=== PATIENT | female | born 1950 | race Caucasian/White ===

== ENCOUNTER 2018-07-07 02:10 | Emergency (ER) | payer MEDICARE, MEDICAID ==
[2018-07-07] MEDS ORDERED: Lidocaine 1% 10 ML MDV INJECT ONE (02:20)
[2018-07-07 02:26] VITALS: BP 112/51
--- NOTE | 2018-07-07 02:31 | EDM.PDOC ---
ED HPI GENERAL MEDICAL PROBLEM - General Chief Complaint: Laceration Stated Complaint: [facility] Time Seen by Provider: 07/07/18 02:12 Source of Information: Reports: Patient, Family History Limitations: Reports: Other (mentally handicapped. ) - History of Present Illness INITIAL COMMENTS - FREE TEXT/NARRATIVE: 67-year-old female who resides at [facility] had a fall after getting up to the bathroom tonight. Apparently she has bad arthritis in her knees and occasionally her left knee in particular will give out on her at times. This appears to be what happened tonight causing her to fall backwards striking her occipital scalp on the windowsill. This resulted in a 1 cm laceration left occipital scalp. Providers were with her when she fell and recognize no loss of consciousness. The patient is mentally handicapped and nonverbal in the ED. No other injuries are apparent. Onset: Today Onset Date: 07/07/18 Onset Time: 01:45 Duration: Minutes: Location: Reports: Head (Contusion with small laceration left occipital scalp.) Quality: Reports: Other Severity: Mild (1 cm laceration left occipital scalp) Improves with: Reports: None Worsens with: Reports: None Context: Reports: Trauma. 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: Reports: Other (see below) (None.) - Related Data Allergies Allergy/AdvReac Type Severity Reaction Status Date / Time carbamazepine Allergy Rash Verified 07/07/18 02:26 Penicillins Allergy Cannot Verified 07/07/18 02:26 Remember sulfamethoxazole Allergy Cannot Verified 07/07/18 02:26 [From Bactrim] Remember trimethoprim [From Bactrim] Allergy Cannot Verified 07/07/18 02:26 Remember Home Meds: Home Meds F-Qhfm-Ouof-Lido Gel 0 applic TOP TID 11/27/14 [History] Calcium Carbonate/Vitamin D3 [Oyster Shell 500 mg + Vit D] 500 mg PO BID [History] Celecoxib [CeleBREX] 1 PO DAILY 11/27/14 [History] ClonazePAM [KlonoPIN] 1 tab PO TID 11/27/14 [History] Docusate Sodium [Doc-Q-Lace] 1 cap PO BID 11/27/14 [History] Escitalopram [Lexapro] 10 tab PO BID 11/27/14 [History] LORazepam [Ativan] 0.5 mg PO QID PRN 11/27/14 [History] Lactulose [Generlac] 30 ml PO BEDTIME 11/27/14 [History] Lisinopril 20 mg PO DAILY 11/27/14 [History] Metoprolol Succinate [Toprol XL] 1 tab PO BID 11/27/14 [History] Multivit-Min/FA/Lycopene/Lut [Certavite Sr-Antioxidant Tab] 1 tab PO DAILY 11/27 [History] Nystatin [Nystop] 0 gram TOP TID PRN 11/27/14 [History] Nystatin/Triamcinolone Crm [Mycolog Crm] 0 applic TOP PRN 11/27/14 [History] [place]-3/DHA/Epa/Fish Oil [Fish Oil 1,000 mg Softgel] 1,000 mg PO TID 11/27/14 [ History] Omeprazole [Prilosec] 20 mg PO BID 11/27/14 [History] [id number]/Sod Sul/NaCl/Asb/C/KCl [Moviprep Powder Packet] 17 mg PO DAILY 11/27/14 [History] Propylene Glycol/PEG 400/Pf [Systane Ultra 0.4-0.3% Eye Drp] 1 drop EYEBOTH DAILY 11/27/14 [History] Simvastatin [Zocor] 20 mg PO BEDTIME 11/27/14 [History] Tylenol/Acetaminophen 325 mg PO Q4HR PRN 11/27/14 [History] tiZANidine [Zanaflex] 2 mg PO BID 11/27/14 [History] Past Medical History Other HEENT History: No teeth and Pt does not wear dentures Other Musculoskeletal History: severe pronation of feet, right foot with collapsed arch Other Neuro History: severe mental retardation 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 Social & Family History - Living Situation & Occupation Living situation: Reports: Single (Lives at [facility]) Occupation: Disabled ED ROS GENERAL - Review of Systems Review Of Systems: Unable To Obtain ED EXAM, SKIN/RASH Exam: See Below Exam Limited By: Physical Impairment (Patient is nonverbal and the mentally handicapped.) General Appearance: Alert, WD/WN, No Apparent Distress Eye Exam: Bilateral Eye: Normal Inspection Throat/Mouth: Normal Inspection, Normal Lips, Normal Oropharynx Head: Other (Patient has minimal hematoma left occipital scalp with a 1 cm laceration which is fairly superficial but actively bleeding in this area.) Neck: Normal Inspection, Supple, Non-Tender, Full Range of Motion. No: Lymphadenopathy (L), Lymphadenopathy (R) Respiratory/Chest: No Respiratory Distress, Lungs Clear, Normal Breath Sounds, No Accessory Muscle Use Cardiovascular: Normal Peripheral Pulses, Regular Rate, Rhythm, No Edema, No Murmur, No Rub GI/Abdominal: Normal Bowel Sounds, Soft, Non-Tender, No Organomegaly Back Exam: Normal Inspection, Full Range of Motion. No: CVA Tenderness (L), CVA Tenderness (R) Extremities: Other (Evidence of posterior arthritic changes both knees and both hips.) Psychiatric: Flat Affect Skin: Warm, Dry, Normal Color, Other (Laceration left occipital scalp.) ED SKIN PROCEDURES - Laceration/Wound Repair Left Upper Occipital Head Lac/Wound length In cm: 1.0 Appearance: Subcutaneous, Clean Distal NVT: Neuro & Vascular Intact Anesthetic Type: Local Local Anesthesia - Lidocaine (Xylocaine): 1% Plain Local Anesthetic Volume: 1cc Skin Prep: Saline Closed with: Sutures Suture Size: 4-0 # of Sutures: 2 Suture Type: Prolene, Nylon, Interrupted, Simple Course - Vital Signs Last Recorded V/S: Last Vital Signs Temp 35.9 C 07/07/18 02:19 Pulse 70 07/07/18 02:19 Resp 20 07/07/18 02:19 BP 112/51 L 07/07/18 02:19 Pulse Ox 93 L 07/07/18 02:19 - Orders/Labs/Meds Meds: Medications Discontinued Medications Generic Name Dose Route Start Last Admin Trade Name Thaq PRN Reason Stop Dose Admin Lidocaine HCl 10 ml 07/07/18 02:20 07/07/18 02:26 Xylocaine 1% INJECT 07/07/18 02:21 10 ml ONETIME ONE Administration - Radiology Interpretation Free Text/Narrative:: 67-year-old female who is mentally handicapped presents to the ED after a fall at home this morning. She got up to use the bathroom and apparently on the way back to her bedroom her left knee gave out on her causing her to fall. She fell backward striking the left occipital aspect of her scalp on the windowsill. This resulted in a very minimal hematoma in this area but a 1 cm laceration that continued to bleed. She was thus brought to the ED for evaluation and suture repair. - Re-Assessments/Exams Free Text/Narrative Re-Assessment/Exam: 07/07/18 02:38 laceration repaired under local anesthetic 2 sutures using 4-0 Prolene. Sutures need to be removed in 10 days' time Departure - Departure Time of Disposition: 02:29 Disposition: Home, Self-Care 01 Condition: Fair Clinical Impression: Minor closed head injury Occipital scalp laceration Qualifiers: Encounter type: initial encounter Qualified Code(s): S01.01XA - Laceration without foreign body of scalp, initial encounter - Discharge Information *PRESCRIPTION DRUG MONITORING PROGRAM REVIEWED*: Not Applicable *COPY OF PRESCRIPTION DRUG MONITORING REPORT IN PATIENT KESAHV: Not Applicable Instructions: Head Injury, Adult, [id number], Stitches, [place], or Adhesive Wound Closure, [id number] Forms: ED Department Discharge Additional Instructions: Evaluation the emergency room tonight in regards to a fall at home. It appears that left knee gave out causing her to fall and she struck the left occipital aspect of her scalp on the edge of the windowsill. This resulted in a very minor contusion to the scalp but with a 1 cm laceration. Wound was cleansed and then sutured under local anesthetic 2 sutures. Treatment at home is to daily cleanse the wound with soap and water. Showering is okay. Then apply topical antibiotic such as bacitracin or Polysporin to the wound once daily. Sutures should be removed in about 10 days time. Please make a follow-up appointment with your primary care physician to have the stitches removed. Return to the ED if vomiting more than twice occurs.
== END 2018-07-07 02:46 | disposition home or self-care (01) ==
LOC: JD.ED 02:10
DX: S01.01XA Laceration without foreign body of scalp, initial encounter (principal); Z79.899 Other long term (current) drug therapy; Z88.0 Allergy status to penicillin; Z88.2 Allergy status to sulfonamides; Z88.1 Allergy status to other antibiotic agents; W19.XXXA Unspecified fall, initial encounter
CPT/HCPCS: 12001; 99283; J2001; 99282

== ENCOUNTER 2018-11-08 09:51 | Day surgery (SDC) | payer MEDICARE, MEDICAID ==
[~2018-11-08 09:51] MED LIST: Cefuroxime 10 MG/ML SYRINGE EYERT SCH; Lidocaine 1% PF 2 ML SDV INJECT SCH; Pilocarpine 4% Ophth Soln 15 ML Bot EYERT SCH; Polymyxin B/Trimethoprim 10 ML Bottle EYERT SCH
[2018-11-08] MEDS: Ofloxacin 0.3% Ophth Soln 5 ML Bottle EYERT SCH ×2 (10:35→11:15)
[2018-11-08] MEDS: Brimonidine 0.2% Ophth Soln 5 ML Bottle EYERT SCH ×3 (10:40→13:14)
[2018-11-08] MEDS: Phenylephrine 2.5% Ophth Soln 2 ML Bot EYERT SCH ×5 (10:45→12:55)
--- NOTE | 2018-11-08 10:48 | PCM.PREANE ---
Preanesthetic Assessment - Procedure Proposed Procedure: right cataract - Anesthesia/Transfusion/Family Hx Anesthesia History: Prior Anesthesia Without Reaction - Review of Systems General: No Symptoms Pulmonary: No Symptoms Cardiovascular: No Symptoms Gastrointestinal: No Symptoms Neurological: No Symptoms Other: Reports: Diabetes (controlled by diet) - Physical Assessment NPO Status Date: 11/07/18 NPO Status Time: 17:00 (sip opf water with pills today) Vital Signs: 154/87 64 91-98% 97.7 16 Height: 5 ft Weight: 94.347 kg ASA Class: 3 Mental Status: Other (deaf- mental retardation- screams out at times- able members with) Airway Class: Mallampati = 2 Dentition: Reports: Dentures Thyro-Mental Finger Breadths: 3 Mouth Opening Finger Breadths: 3 ROM/Head Extension: Limited/Partial Lungs: Clear to Auscultation, Normal Respiratory Effort Cardiovascular: Regular Rate, Regular Rhythm - Allergies Allergies/Adverse Reactions: Allergies Allergy/AdvReac Type Severity Reaction Status Date / Time carbamazepine Allergy Rash Verified 11/07/18 13:58 Penicillins Allergy Cannot Verified 11/07/18 13:58 Remember sulfamethoxazole Allergy Cannot Verified 11/07/18 13:58 [From Bactrim] Remember trimethoprim [From Bactrim] Allergy Cannot Verified 11/07/18 13:58 Remember - Blood Blood Available: No - Anesthesia Plan Pre-Op Medication Ordered: Beta Nara Beta Nara: Metoprolol Med Last Dose Date: 11/08/18 Med Last Dose Time: 07:00 - Acknowledgements Anesthesia Type Planned: General Anesthesia, MAC Pt an Appropriate Candidate for the Planned Anesthesia: Yes Alternatives and Risks of Anesthesia Discussed w Pt/Guardian: Yes Pt/Guardian Understands and Agrees with Anesthesia Plan: Yes PreAnesthesia Questionnaire HEENT History: Reports: Cataract, Hard of Hearing, Other (See Below) (tmj) Other HEENT History: No teeth and Pt does not wear dentures Cardiovascular History: Reports: Hypertension Gastrointestinal History: Reports: GERD Musculoskeletal History: Reports: Arthritis Other Musculoskeletal History: severe pronation of feet, right foot with collapsed arch Neurological History: Reports: Other (See Below) Other Neuro History: severe mental retardation Psychiatric History: Reports: Other (See Below) 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 - Past Surgical History HEENT Surgical History: Reports: Oral Surgery GI Surgical History: Reports: Other (See Below) (graft rectal prolapse) Female Surgical History: Reports: Hysterectomy - SUBSTANCE USE Smoking Status *Q: Never Smoker Tobacco Use Within Last Twelve Months: No Second Hand Smoke Exposure: No Days Per Week of Alcohol Use: 0 Recreational Drug Use History: No - HOME MEDS Home Medications: Home Meds Acetaminophen 650 mg PO Q4H PRN 11/07/18 [History] Alum Hydrox/Mag Hydrox/Simeth [Mag-Al Plus] 30 ml PO Q4H PRN 11/07/18 [History] Bacitracin/Neomycin/Polymyxin [Triple Antibiotic Oint] 1 applic TOP ASDIRECTED PRN 11/07/18 [History] Calcium Carbonate/Vitamin D3 [Calcium 500 + Vit D Caplet] 1 tab PO BID 11/07/18 [History] Carbamide Peroxide [Debrox 6.5% Otic Soln] 2 drop OT BEDTIME PRN 11/07/18 [ History] Celecoxib [CeleBREX] 200 mg PO DAILY 11/07/18 [History] Clotrimazole [Lotrimin AF 1% Crm] 1 applic TOP BID PRN 11/07/18 [History] Docosanol [Abreva 10%] 1 applic TOP BID PRN 11/07/18 [History] Docusate Sodium [Colace] 100 mg PO BID 11/07/18 [History] Escitalopram [Lexapro] 20 mg PO DAILY 11/07/18 [History] Hydrochlorothiazide [Microzide] 12.5 mg PO DAILY 11/07/18 [History] LORazepam [Ativan] 0.5 mg PO Q4H PRN 11/07/18 [History] Lactulose [Constulose] 30 ml PO DAILY 11/07/18 [History] Lisinopril 10 mg PO DAILY 11/07/18 [History] Magnesium Hydroxide [Milk of Magnesia] 30 ml PO BEDTIME PRN 11/07/18 [History] Metoprolol Succinate 25 mg PO BID 11/07/18 [History] Multivitamin [Daily Sathya] 1 tab PO DAILY 11/07/18 [History] Nystatin 1 applic PO TID PRN 11/07/18 [History] [place]-3/DHA/Epa/Fish Oil [[place]-3 Fish Oil 1,000 MG Sfgl] 1,000 mg PO TID [History] Omeprazole 40 mg PO DAILY 11/07/18 [History] Polyethylene Glycol 3350 [MiraLAX] 17 gm PO DAILY 11/07/18 [History] Propylene Glycol/PEG 400/Pf [Systane 0.3-0.4% Eye Drops] 1 drop EYERT ASDIRECTED 11/07/18 [History] Redia Relief Cough/Cold 5 ml PO ASDIRECTED PRN 11/07/18 [History] Simvastatin 20 mg PO DAILY 11/07/18 [History] Solifenacin [Vesicare] 5 mg PO DAILY 11/07/18 [History] clonazePAM [Klonopin] 1 mg PO TID 11/07/18 [History] risperiDONE [Risperdal] 0.25 mg PO BID 11/07/18 [History] tiZANidine [Zanaflex] 2 mg PO QAM 11/07/18 [History] tiZANidine [Zanaflex] 4 mg PO BEDTIME 11/07/18 [History] - CURRENT (IN HOUSE) MEDS Current Meds: Current Medications Brimonidine Tartrate (Alphagan 0.2% Ophth Soln) 0 ml EYERT ASDIRECTED SHIVAM Stop: 11/08/18 18:00 Last Admin: 11/08/18 10:40 Dose: 1 drop Cefuroxime Sodium (Zinacef) 0 mg EYERT ASDIRECTED SHIVAM Stop: 11/08/18 18:00 Lidocaine HCl (Xylocaine-Mpf 1%) 0 ml INJECT ASDIRECTED SHIVAM Stop: 11/08/18 18:00 Ofloxacin (Ocuflox 0.3% Ophth Soln) 0 ml EYERT ASDIRECTED SHIVAM Stop: 11/08/18 18:00 Last Admin: 11/08/18 10:35 Dose: 1 drop Phenylephrine HCl (Chau-Synephrine 2.5% Ophth Soln) 0 ml EYERT ASDIRECTED SHIVAM Stop: 11/08/18 18:00 [place] HCl (Pilocar 4% Ophth Soln) 0 ml EYERT ASDIRECTED SHIVAM Stop: 11/08/18 18:00 Tetracaine HCl (Tetracaine 0.5% Steri-Unit Marcia) 0 ml EYERT ASDIRECTED SHIVAM Stop: 11/08/18 18:00 Tropicamide (Mydriacyl 1% Ophth Soln) 0 ml EYERT ASDIRECTED SHIVAM Stop: 11/08/18 18:00
[2018-11-08] MEDS: Tropicamide 1% Ophth Soln 15 ML Bottle EYERT SCH ×4 (10:50→11:30)
[2018-11-08] MEDS ORDERED: Propofol 200 MG/20 ML SDV ONE (11:10)
[2018-11-08] MEDS ORDERED: Lidocaine 1% 4 ML ONE (11:10)
[2018-11-08] MEDS ORDERED: Midazolam 1 MG/ML 2 ML SDV ONE (11:10)
[2018-11-08] MEDS ORDERED: fentaNYL 100 MCG/2 ML SDV ONE (11:10)
[2018-11-08] MEDS ORDERED: Ketamine 500 mg/10 ML MDV ONE (11:15)
[2018-11-08] MEDS: Tetracaine HCl/PF 0.5% 4 ML Bottle EYERT SCH ×4 (11:35→13:01)
--- NOTE | 2018-11-08 13:22 | PCM48HPAN ---
Post Anesthesia Note - EVALUATION WITHIN 48HRS OF ANESTHETIC Vital Signs in Normal Range: Yes Patient Participated in Evaluation: Yes Respiratory Function Stable: Yes Airway Patent: Yes Cardiovascular Function Stable: Yes Hydration Status Stable: Yes Pain Control Satisfactory: Yes Nausea and Vomiting Control Satisfactory: Yes Mental Status Recovered: Yes Vital Signs: Last Vital Signs Temp 97.7 F 11/08/18 10:05 Pulse 64 11/08/18 10:05 Resp 16 11/08/18 10:05 BP 154/87 H 11/08/18 10:05 Pulse Ox 91 L 11/08/18 10:05 93% 16 62 97.1 114/76
[2018-11-08 13:56] VITALS: BP 143/81; PULSE 67
[2018-11-08] MEDS ORDERED: Lactated Ringers 1,000 ML IV SCH (14:15)
== END 2018-11-08 13:50 | disposition home or self-care (01) ==
LOC: JD.SDS 09:51
PROVIDERS: ATTEND Ophthalmology
DX: E11.36 Type 2 diabetes mellitus with diabetic cataract (principal); H25.89 Other age-related cataract; H25.811 Combined forms of age-related cataract, right eye; M19.90 Unspecified osteoarthritis, unspecified site; I10 Essential (primary) hypertension; F41.9 Anxiety disorder, unspecified; K21.9 Gastro-esophageal reflux disease without esophagitis; Z79.899 Other long term (current) drug therapy; Z88.1 Allergy status to other antibiotic agents; Z88.0 Allergy status to penicillin; Z88.2 Allergy status to sulfonamides
CPT/HCPCS: 66984; J0697; J2001; J2250; J2704; J3010; J7120; V2632; A9270-GY

== ENCOUNTER 2019-12-16 07:02 | Day surgery (SDC) | payer MEDICARE, MEDICAID ==
[~2019-12-16 07:02] MED LIST changes: -Cefuroxime 10 MG/ML SYRINGE EYERT SCH; +Lactated Ringers 1,000 ML IV SCH; +Lidocaine 1% 4 ML ONE; -Lidocaine 1% PF 2 ML SDV INJECT SCH; +Lidocaine 1%/Sod Bicarbonate in NS 8.4% 1 ML Syringe IDERM PRN; -Pilocarpine 4% Ophth Soln 15 ML Bot EYERT SCH; -Polymyxin B/Trimethoprim 10 ML Bottle EYERT SCH; +Propofol 200 MG/20 ML SDV ONE; +Sodium Chloride 0.9% 10 ML Syringe FLUSH PRN
[2019-12-16] MEDS ORDERED: fentaNYL 100 MCG/2 ML SDV ONE (07:03)
[2019-12-16] MEDS ORDERED: Propofol 200 MG/20 ML SDV ONE (07:03)
--- NOTE | 2019-12-16 07:41 | PCM.PREANE ---
Preanesthetic Assessment - Anesthesia/Transfusion/Family Hx Anesthesia History: Prior Anesthesia Without Reaction (histery obtained via chart and [facility] provider Bela) Family History of Anesthesia Reaction: No Transfusion History: No Prior Transfusion(s) - Review of Systems General: No Symptoms Pulmonary: No Symptoms Cardiovascular: No Symptoms Gastrointestinal: No Symptoms Neurological: No Symptoms Other: Reports: None - Physical Assessment NPO Status Date: 12/15/19 NPO Status Time: 21:45 ASA Class: 3 Airway Class: Mallampati = 3 Thyro-Mental Finger Breadths: 3 Mouth Opening Finger Breadths: 3 ROM/Head Extension: Full Lungs: Clear to Auscultation, Normal Respiratory Effort Cardiovascular: Regular Rate, Regular Rhythm - Allergies Allergies/Adverse Reactions: Allergies Allergy/AdvReac Type Severity Reaction Status Date / Time carbamazepine Allergy Rash Verified 12/13/19 08:59 Penicillins Allergy Cannot Verified 12/13/19 08:59 Remember sulfamethoxazole Allergy Cannot Verified 12/13/19 08:59 [From Bactrim] Remember trimethoprim [From Bactrim] Allergy Cannot Verified 12/13/19 08:59 Remember - Anesthesia Plan Beta Nara: Metoprolol Med Last Dose Date: 12/16/19 Med Last Dose Time: 06:00 - Acknowledgements Anesthesia Type Planned: MAC Pt an Appropriate Candidate for the Planned Anesthesia: Yes Alternatives and Risks of Anesthesia Discussed w Pt/Guardian: Yes Pt/Guardian Understands and Agrees with Anesthesia Plan: Yes PreAnesthesia Questionnaire HEENT History: Reports: Cataract, Hard of Hearing, Other (See Below) Other HEENT History: No teeth and Pt does not wear dentures Cardiovascular History: Reports: Hypertension Respiratory History: Reports: None, Other (See Below) (pickwickian syndrome) Gastrointestinal History: Reports: GERD, Other (See Below) Other Gastrointestinal History: rectal fissure Genitourinary History: Reports: Urinary Incontinence CATTLE BRANDER History: Reports: None Musculoskeletal History: Reports: Arthritis Other Musculoskeletal History: severe pronation of feet, right foot with collapsed arch Neurological History: Reports: CVA, Other (See Below) Other Neuro History: severe mental retardation Psychiatric History: Reports: Other (See Below) 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 Endocrine/Metabolic History: Reports: None, Obesity/BMI 30+ Hematologic History: Reports: None Immunologic History: Reports: None Oncologic (Cancer) History: Reports: None Dermatologic History: Reports: None - Past Surgical History Head Surgeries/Procedures: Reports: None HEENT Surgical History: Reports: Oral Surgery Cardiovascular Surgical History: Reports: None Respiratory Surgical History: Reports: None GI Surgical History: Reports: Colonoscopy Female Surgical History: Reports: Hysterectomy Endocrine Surgical History: Reports: None Neurological Surgical History: Reports: None Musculoskeletal Surgical History: Reports: None Oncologic Surgical History: Reports: None - SUBSTANCE USE Tobacco Use Status *Q: Never Tobacco User Recreational Drug Use History: No - HOME MEDS Home Medications: Home Meds Acetaminophen 650 mg PO Q4H PRN 11/07/18 [History] Calcium Carbonate/Vitamin D3 [Calcium 500 + Vit D Caplet] 1 tab PO BID 11/07/18 [History] Carbamide Peroxide [Debrox 6.5% Otic Soln] 2 drop OT BEDTIME PRN 11/07/18 [History] Celecoxib [CeleBREX] 200 mg PO DAILY 11/07/18 [History] Clotrimazole [Lotrimin AF 1% Crm] 1 applic TOP BID PRN 11/07/18 [History] Docosanol [Abreva 10%] 1 applic TOP BID PRN 11/07/18 [History] Docusate Sodium [Colace] 100 mg PO BID 11/07/18 [History] Escitalopram [Lexapro] 20 mg PO DAILY 11/07/18 [History] LORazepam [Ativan] 0.5 mg PO Q4H PRN 11/07/18 [History] Lactulose [Constulose] 30 ml PO DAILY 11/07/18 [History] Lisinopril 10 mg PO DAILY 11/07/18 [History] Magnesium Hydroxide [Milk of Magnesia] 30 ml PO BEDTIME PRN 11/07/18 [History] Metoprolol Succinate 25 mg PO BID 11/07/18 [History] Multivitamin [Daily Sathya] 1 tab PO DAILY 11/07/18 [History] Nystatin 1 applic PO TID PRN 11/07/18 [History] [place]-3/DHA/Epa/Fish Oil [[place]-3 Fish Oil 1,000 MG Sfgl] 1,000 mg PO TID 11/07/18 [History] Propylene Glycol/PEG 400/Pf [Systane 0.3-0.4% Eye Drops] 1 drop EYERT DAILY 11/07/18 [History] Simvastatin 20 mg PO DAILY 11/07/18 [History] clonazePAM [Klonopin] 1 mg PO TID 11/07/18 [History] polyethylene glycoL 3350 [MiraLAX] 17 gm PO DAILY 11/07/18 [History] risperiDONE [Risperdal] 0.25 mg PO BID 11/07/18 [History] tiZANidine [Zanaflex] 4 mg PO BID 11/07/18 [History] Aloe Vera/Sodium Chloride [[place] Saline Nasal Gel] 1 dose OXANA Q2H PRN 12/13/19 [History] Furosemide [Lasix] 20 mg PO DAILY 12/13/19 [History] Ketoprofen [Frotek] 1 dose TOP TID 12/13/19 [History] Oxybutynin Chloride [Ditropan Xl] 10 mg PO DAILY 12/13/19 [History] Pantoprazole Sodium [Protonix] 40 mg PO QAM 12/13/19 [History] - CURRENT (IN HOUSE) MEDS Current Meds: Current Medications Lactated Ringer's (Ringers, Lactated) 1,000 mls @ 125 mls/hr IV ASDIRECTED SHIVAM Stop: 12/16/19 23:00 Lidocaine/Sodium Bicarbonate (Buffered Lidocaine 1% In Ns 8.4%) 0.25 ml IDERM ONETIME PRN PRN Reason: Prior to IV Start Stop: 12/16/19 18:00 Sodium Chloride (Saline Flush) 10 ml FLUSH ASDIRECTED PRN PRN Reason: Keep Vein Open Stop: 12/16/19 18:00 Discontinued Medications Fentanyl (Sublimaze) Confirm Administered Dose 100 mcg .ROUTE .STK-MED ONE Stop: 12/16/19 07:04 Lidocaine HCl (Xylocaine-Mpf 1%) Confirm Administered Dose 4 mls @ as directed .ROUTE .STK-MED ONE Stop: 12/16/19 07:01 Propofol (Diprivan 20 Ml) Confirm Administered Dose 200 mg .ROUTE .STK-MED ONE Stop: 12/16/19 07:02 Propofol (Diprivan 20 Ml) Confirm Administered Dose 200 mg .ROUTE .STK-MED ONE Stop: 12/16/19 07:04
--- NOTE | 2019-12-16 09:09 | PCM48HPAN ---
Post Anesthesia Note - EVALUATION WITHIN 48HRS OF ANESTHETIC Vital Signs in Normal Range: Yes Patient Participated in Evaluation: Yes Respiratory Function Stable: Yes Airway Patent: Yes Cardiovascular Function Stable: Yes Hydration Status Stable: Yes Pain Control Satisfactory: Yes Nausea and Vomiting Control Satisfactory: Yes Mental Status Recovered: Yes Vital Signs: Last Vital Signs Temp 36.1 C 12/16/19 07:10 Pulse 66 12/16/19 07:10 Resp 16 12/16/19 07:10 BP 151/82 H 12/16/19 07:10 Pulse Ox 95 12/16/19 07:10
[2019-12-16 09:16] VITALS: PULSE 72
--- NOTE | 2019-12-16 09:45 | PROC ---
DATE OF OPERATION: SURGEON: Clemente Ruiz MD PREOPERATIVE DIAGNOSES: Abdominal pain and chronic heartburn. POSTOPERATIVE DIAGNOSES: 1. Antritis. 2. Stomach polyp. 3. Minimal distal esophagitis. 4. Diverticulosis. 5. Rectal polyp. OPERATION PERFORMED: 1. Esophagogastroduodenoscopy. 2. Colonoscopy. ANESTHESIA: Monitored anesthesia care. COMPLICATIONS: None. EBL: Minimal. INDICATIONS AND CONSENT: The patient is a 69-year-old female who has chronic heartburn. The patient has been on long-term PPIs and she has taken these for years. As of recent months the patient has been complaining more of upper abdominal pain. Therefore, the patient was seen in clinic and evaluated. Last colonoscopy was in 2008 and she was due for another colonoscopy, but due to her symptoms we elected to proceed with EGD and colonoscopy. Risks, benefits, and alternatives were discussed with the patient's caregiver and informed consent was obtained. Of note, the patient is disabled and currently lives in an assisted living. DESCRIPTION OF PROCEDURE: The patient was taken to the procedure room, placed in supine position and monitored anesthesia care was induced and the patient's position was turned into left lateral decubitus. Time-out was performed. The patient was padded appropriately and then we began with an EGD. Scope was placed into the mouth and with clear visualization taken all the way down to the second portion of duodenum. The duodenum appeared normal. Duodenal bulb was normal. In the stomach antrum, there were two focal areas of erythema almost resembling an area of healing erosions. These areas were biopsied and there were other few more areas of focal erythema that were also noted. Cold forceps was used for biopsies. In the stomach body along the greater curvature there was a 0.7 cm polyp, this was completely removed with a hot snare. EBL was minimal. On retroflexion, there was no hiatal hernia. There was no other obvious abnormalities. The rest of the mucosa appeared normal. We withdrew the scope back into the GE junction. GE junction was irregular. There was hypertrophic tissue in the GE junction. Therefore, biopsies were taken here. There was minimal erosive esophagitis only in one area anteriorly. Therefore, a biopsy was taken in the distal esophagus to further evaluate this area. At this point, we went back into the stomach, once again inspected the stomach. There was no other abnormalities. There was no active bleeding. Air was suctioned out. While withdrawing the scope, we examined the entirety of the esophagus. Esophagus was tortuous but no other areas of abnormalities. The scope was withdrawn concluding this portion of the procedure. Next, we proceeded with colonoscopy. Digital rectal exam was significant for anal skin tag in the anterior position, scope was placed and taken all the way to the cecum. Prep was adequate for examination for polyps and the exam was technically difficult due to looping. We had to apply abdominal pressure to complete the exam. The cecum was reached. The ileocecal valve was photographed. Appendiceal orifice was also photographed. The cecum appeared normal. The ascending colon appears slightly more congested than usual therefore a biopsy was taken with cold forceps for pathologic exam. Then, we withdrew the scope, slowly examining the entirety of the mucosa, wherever there was liquid stool, this was suctioned out and irrigated. In the descending colon and sigmoid colon there were scattered diverticulosis. These were few and medium in size. In the rectum there was a small 3 mm polyp that was removed with cold forceps and taken for pathology. On retroflexion, there was no abnormalities in the rectum. Once again, the scope was advanced back into the transverse colon and air was suctioned out and the exam was concluded. 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 There were no other complications. LOLIS /[id number] ZHAO
[2019-12-16 10:05] VITALS: BP 152/72
--- NOTE | 2019-12-16 13:11 | PCM48HPAN ---
Post Anesthesia Note - EVALUATION WITHIN 48HRS OF ANESTHETIC Vital Signs in Normal Range: Yes Patient Participated in Evaluation: Yes Respiratory Function Stable: Yes Airway Patent: Yes Cardiovascular Function Stable: Yes Hydration Status Stable: Yes Pain Control Satisfactory: Yes Nausea and Vomiting Control Satisfactory: Yes Mental Status Recovered: Yes Vital Signs: Last Vital Signs Temp 36.6 C 12/16/19 09:30 Pulse 72 12/16/19 09:30 Resp 16 12/16/19 09:30 BP 152/72 H 12/16/19 09:30 Pulse Ox 95 12/16/19 09:30
== END 2019-12-16 09:44 | disposition home or self-care (01) ==
LOC: JD.SDS 07:02
PROVIDERS: ATTEND Surgery
DX: D12.8 Benign neoplasm of rectum (principal); K29.50 Unspecified chronic gastritis without bleeding; K57.30 Diverticulosis of large intestine without perforation or abscess without bleeding; K31.7 Polyp of stomach and duodenum; K21.00 Gastro-esophageal reflux disease with esophagitis, without bleeding; I10 Essential (primary) hypertension; E78.5 Hyperlipidemia, unspecified; Z98.890 Other specified postprocedural states; Z79.899 Other long term (current) drug therapy; Z88.0 Allergy status to penicillin; Z88.8 Allergy status to other drugs, medicaments and biological substances; Z88.2 Allergy status to sulfonamides
CPT/HCPCS: 43239; 45380; J2001; J2704; J3010; J7120; 00813

== ENCOUNTER 2020-02-10 09:13 | Day surgery (SDC) | payer MEDICARE, MEDICAID ==
[~2020-02-10 09:13] MED LIST changes: -Lidocaine 1% 4 ML ONE; -Propofol 200 MG/20 ML SDV ONE
[2020-02-10] MEDS ORDERED: Propofol 200 MG/20 ML SDV ONE (10:52)
[2020-02-10] MEDS ORDERED: Lidocaine 1% 4 ML ONE (10:52)
[2020-02-10] MEDS ORDERED: fentaNYL 100 MCG/2 ML SDV ONE (10:53)
--- NOTE | 2020-02-10 10:55 | PCM.PREANE ---
Preanesthetic Assessment - Procedure Proposed Procedure: EGD - Anesthesia/Transfusion/Family Hx Anesthesia History: Prior Anesthesia Without Reaction (histery obtained via chart and [facility] provider Bela) Family History of Anesthesia Reaction: No Transfusion History: No Prior Transfusion(s) Intubation History: Unknown - Review of Systems General: No Symptoms (on HomeO2 2LPM.) Pulmonary: No Symptoms, Shortness of Breath Cardiovascular: No Symptoms (HTN, elevated cholesterol), Dyspnea on Exertion, Edema (lower extremities, patient on lasix) Gastrointestinal: No Symptoms (GERD) Neurological: No Symptoms (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), Difficulty Walking (uses walker) Other: Reports: Depression, Anxiety - Physical Assessment NPO Status Date: 02/09/20 NPO Status Time: 22:00 Vital Signs: Last Vital Signs Temp 36.2 C 02/10/20 09:46 Pulse 68 02/10/20 09:46 Resp 18 02/10/20 09:46 BP 144/76 H 02/10/20 09:46 Pulse Ox 96 02/10/20 09:46 Height: 1.5 m Weight: 97.579 kg ASA Class: 3 Mental Status: Other (Patient has mental special needs.) Airway Class: Mallampati = 3 Dentition: Reports: Dentures Thyro-Mental Finger Breadths: 3 Mouth Opening Finger Breadths: 3 (TMJ) ROM/Head Extension: Full Lungs: Clear to Auscultation, Normal Respiratory Effort Cardiovascular: Regular Rate, Regular Rhythm, No Murmurs - Imaging/EKG Impressions: EKG: SR rate=79 Echocardiogram: EF: 55-60%, mild mitral valve regurgitation - Allergies Allergies/Adverse Reactions: Allergies Allergy/AdvReac Type Severity Reaction Status Date / Time carbamazepine Allergy Rash Verified 02/10/20 09:42 Penicillins Allergy Cannot Verified 02/10/20 09:42 Remember sulfamethoxazole Allergy Cannot Verified 02/10/20 09:42 [From Bactrim] Remember trimethoprim [From Bactrim] Allergy Cannot Verified 02/10/20 09:42 Remember - Anesthesia Plan Beta Nara: Metoprolol Med Last Dose Date: 02/10/20 Med Last Dose Time: 07:00 - Acknowledgements Anesthesia Type Planned: MAC Pt an Appropriate Candidate for the Planned Anesthesia: Yes Alternatives and Risks of Anesthesia Discussed w Pt/Guardian: Yes Pt/Guardian Understands and Agrees with Anesthesia Plan: Yes PreAnesthesia Questionnaire HEENT History: Reports: Cataract, Hard of Hearing, Other (See Below) Other HEENT History: No teeth and Pt does not wear dentures Cardiovascular History: Reports: Hypertension Respiratory History: Reports: None, Other (See Below) Gastrointestinal History: Reports: GERD, Other (See Below) Other Gastrointestinal History: rectal fissure Genitourinary History: Reports: Urinary Incontinence 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 Musculoskeletal History: Reports: Arthritis Other Musculoskeletal History: severe pronation of feet, right foot with collapsed arch Neurological History: Reports: CVA, Other (See Below) Other Neuro History: severe mental retardation Psychiatric History: Reports: Other (See Below) 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 Endocrine/Metabolic History: Reports: None, Obesity/BMI 30+ Hematologic History: Reports: None Immunologic History: Reports: None Oncologic (Cancer) History: Reports: None Dermatologic History: Reports: None - Infectious Disease History Infectious Disease History: Reports: None - Past Surgical History Head Surgeries/Procedures: Reports: None HEENT Surgical History: Reports: Oral Surgery Cardiovascular Surgical History: Reports: None Respiratory Surgical History: Reports: None GI Surgical History: Reports: Colonoscopy Female Surgical History: Reports: Hysterectomy Endocrine Surgical History: Reports: None Neurological Surgical History: Reports: None Musculoskeletal Surgical History: Reports: None Oncologic Surgical History: Reports: None - SUBSTANCE USE Tobacco Use Status *Q: Never Tobacco User Recreational Drug Use History: No - HOME MEDS Home Medications: Home Meds Acetaminophen 650 mg PO Q4H PRN 11/07/18 [History] Calcium Carbonate/Vitamin D3 [Calcium 500 + Vit D Caplet] 1 tab PO BID 11/07/18 [History] Carbamide Peroxide [Debrox 6.5% Otic Soln] 2 drop OT BEDTIME PRN 11/07/18 [History] Celecoxib [CeleBREX] 200 mg PO DAILY 11/07/18 [History] Clotrimazole [Lotrimin AF 1% Crm] 1 applic TOP BID PRN 11/07/18 [History] Docosanol [Abreva 10%] 1 applic TOP BID PRN 11/07/18 [History] Docusate Sodium [Colace] 100 mg PO BID 11/07/18 [History] Escitalopram [Lexapro] 20 mg PO DAILY 11/07/18 [History] LORazepam [Ativan] 0.5 mg PO Q4H PRN 11/07/18 [History] Lactulose [Constulose] 30 ml PO DAILY 11/07/18 [History] Lisinopril 10 mg PO DAILY 11/07/18 [History] Magnesium Hydroxide [Milk of Magnesia] 30 ml PO BEDTIME PRN 11/07/18 [History] Metoprolol Succinate 25 mg PO BID 11/07/18 [History] Multivitamin [Daily Sathya] 1 tab PO DAILY 11/07/18 [History] Nystatin 1 applic PO TID PRN 11/07/18 [History] [place]-3/DHA/Epa/Fish Oil [[place]-3 Fish Oil 1,000 MG Sfgl] 1,000 mg PO TID 11/07/18 [History] Propylene Glycol/PEG 400/Pf [Systane 0.3-0.4% Eye Drops] 1 drop EYERT DAILY 11/07/18 [History] Simvastatin 20 mg PO DAILY 11/07/18 [History] clonazePAM [Klonopin] 1 mg PO TID 11/07/18 [History] polyethylene glycoL 3350 [MiraLAX] 17 gm PO DAILY 11/07/18 [History] risperiDONE [Risperdal] 0.25 mg PO BID 11/07/18 [History] tiZANidine [Zanaflex] 4 mg PO BID 11/07/18 [History] Aloe Vera/Sodium Chloride [[place] Saline Nasal Gel] 1 dose OXANA Q2H PRN 12/13/19 [History] Furosemide [Lasix] 20 mg PO DAILY 12/13/19 [History] Ketoprofen [Frotek] 1 dose TOP TID 12/13/19 [History] Oxybutynin Chloride [Ditropan Xl] 10 mg PO DAILY 12/13/19 [History] Pantoprazole Sodium [Protonix] 40 mg PO QAM 12/13/19 [History] - CURRENT (IN HOUSE) MEDS Current Meds: Current Medications Lactated Ringer's (Ringers, Lactated) 1,000 mls @ 125 mls/hr IV ASDIRECTED SHIVAM Stop: 02/10/20 23:00 Last Admin: 02/10/20 09:40 Dose: 125 mls/hr Documented by: Lidocaine/Sodium Bicarbonate (Buffered Lidocaine 1% In Ns 8.4%) 0.25 ml IDERM ONETIME PRN PRN Reason: Prior to IV Start Stop: 02/10/20 18:00 Last Admin: 02/10/20 09:40 Dose: 0.25 ml Documented by: Sodium Chloride (Saline Flush) 10 ml FLUSH ASDIRECTED PRN PRN Reason: Keep Vein Open Stop: 02/10/20 18:00
--- NOTE | 2020-02-10 12:30 | PCM48HPAN ---
Post Anesthesia Note - EVALUATION WITHIN 48HRS OF ANESTHETIC Vital Signs in Normal Range: Yes Patient Participated in Evaluation: Yes Respiratory Function Stable: Yes Airway Patent: Yes Cardiovascular Function Stable: Yes Hydration Status Stable: Yes Pain Control Satisfactory: Yes Nausea and Vomiting Control Satisfactory: Yes Mental Status Recovered: Yes Vital Signs: Last Vital Signs Temp 36.2 C 02/10/20 09:46 Pulse 68 02/10/20 09:46 Resp 18 02/10/20 09:46 BP 144/76 H 02/10/20 09:46 Pulse Ox 96 02/10/20 09:46
[2020-02-10 12:48] VITALS: BP 158/90; PULSE 73
--- NOTE | 2020-02-11 02:07 | PROC ---
DATE OF OPERATION: 02/10/2020 SURGEON: Clemente Ruiz MD PREOPERATIVE DIAGNOSIS: Gastric hyperplastic polyp POSTOPERATIVE DIAGNOSIS: Mild gastritis Mild esophagitis PROCEDURE: Esophagogastroduodenoscopy with biopsies. ANESTHESIA: Monitored anesthesia care. ESTIMATED BLOOD LOSS: Minimal. COMPLICATIONS: None. INDICATION AND CONSENT: The patient is a 69-year-old female who lives at [facility]. The patient underwent EGD, colonoscopy few months ago. EGD with biopsies revealed hyperplastic gastric polyp. Therefore, followup EGD with multiple biopsies was recommended to make sure there are no infections or cancerous changes. We discussed risks, benefits with the patient's POA, and informed consent was obtained. DESCRIPTION OF PROCEDURE: The patient was taken to the procedure room, placed in the left lateral decubitus position. Time-out was performed. Monitored anesthesia care was induced. We began the procedure by putting a scope through the mouth and taken to the second portion of duodenum. Duodenum was normal. Stomach had mild gastritis. Biopsies were taken in the antrum, body as well as fundus of the stomach because of the history of hyperplastic polyp in the stomach. EBL was minimal. There were no other complications. In the distal esophagus, there was mild esophagitis. This was not biopsied this time around. Then, at this point, the scope was placed back into the stomach, air suctioned out, and scope was removed to flori the end of the procedure. At the end of the procedure, the patient was taken back to the recovery room for recovery. The patient will be allowed to return home today. The patient will come back to the clinic in 1 to 2 weeks for discussion of pathology. MMODAL /[id number]
== END 2020-02-10 12:55 | disposition home or self-care (01) ==
LOC: JD.SDS 09:13
PROVIDERS: ATTEND Surgery
DX: K31.7 Polyp of stomach and duodenum (principal); K20.90 Esophagitis, unspecified without bleeding; K29.50 Unspecified chronic gastritis without bleeding; K31.89 Other diseases of stomach and duodenum; I10 Essential (primary) hypertension; K21.9 Gastro-esophageal reflux disease without esophagitis; E78.5 Hyperlipidemia, unspecified; E66.9 Obesity, unspecified; Z98.890 Other specified postprocedural states; Z79.899 Other long term (current) drug therapy; Z88.0 Allergy status to penicillin; Z88.8 Allergy status to other drugs, medicaments and biological substances; Z88.2 Allergy status to sulfonamides; Z86.73 Personal history of transient ischemic attack (TIA), and cerebral infarction without residual deficits
CPT/HCPCS: 43239; 88305; 88342; J2001; J2704; J3010; J7120; 00731

== ENCOUNTER 2021-02-15 07:34 | Day surgery (SDC) | payer MEDICARE, MEDICAID ==
--- NOTE | 2021-02-11 15:43 | PCM.PREANE ---
Preanesthetic Assessment - Procedure Proposed Procedure: EGD with Gastric Mapping - Anesthesia/Transfusion/Family Hx Anesthesia History: Prior Anesthesia Without Reaction (histery obtained via chart and [facility] provider Bela) Family History of Anesthesia Reaction: No Transfusion History: No Prior Transfusion(s) Intubation History: Unknown - Review of Systems General: No Symptoms (History of home O2 at 2LPM/Patient history obtained from prior records and [facility] staff.) Pulmonary: No Symptoms (On 2LPM nasal cannula continuously), Shortness of Breath Cardiovascular: No Symptoms (HTN, Elevated cholesterol), Dyspnea on Exertion, Edema (History of lower leg edema: patient takes lasix-last took yesterday.) Gastrointestinal: No Symptoms (GERD-controlled), Constipation Neurological: No Symptoms (Mental Retardation/history of CVA), Difficulty Walking (uses walker) Other: Reports: None (History of bruxism, TMJ, oral surgery), Easy Bruising, Depression, Anxiety - Physical Assessment NPO Status Date: 02/14/21 NPO Status Time: 19:00 Vital Signs: HR: 60 Sat: 93% Temp: 97 B/P: 149/84 Resp: 16 Height: 1.75 m Weight: 89.811 kg ASA Class: 3 Mental Status: Alert & Oriented x3 Airway Class: Mallampati = 3 Dentition: Reports: Dentures (upper and lower) Thyro-Mental Finger Breadths: 3 Mouth Opening Finger Breadths: 3 ROM/Head Extension: Full Lungs: Clear to Auscultation, Normal Respiratory Effort Cardiovascular: Regular Rate, Regular Rhythm, No Murmurs - Lab Values: All labs reviewed and noted and within acceptable ranges to proceed with scheduled procedure. - Imaging/EKG Impressions: EKG: SR rate=79 Echocardiogram: 2020: EF: 55-60%, mild mitral valve regurgitation - Allergies Allergies/Adverse Reactions: Allergies Allergy/AdvReac Type Severity Reaction Status Date / Time carbamazepine Allergy Rash Verified 02/15/21 07:32 Penicillins Allergy Cannot Verified 02/15/21 07:32 Remember sulfamethoxazole Allergy Cannot Verified 02/15/21 07:32 [From Bactrim] Remember trimethoprim [From Bactrim] Allergy Cannot Verified 02/15/21 07:32 Remember - Anesthesia Plan Pre-Op Medication Ordered: Beta Nara Beta Nara: Metoprolol Med Last Dose Date: 02/15/21 Med Last Dose Time: 06:00 - Acknowledgements Anesthesia Type Planned: MAC Pt an Appropriate Candidate for the Planned Anesthesia: Yes Alternatives and Risks of Anesthesia Discussed w Pt/Guardian: Yes Pt/Guardian Understands and Agrees with Anesthesia Plan: Yes PreAnesthesia Questionnaire HEENT History: Reports: Cataract, Hard of Hearing, Other (See Below) Other HEENT History: No teeth and Pt does not wear dentures Cardiovascular History: Reports: Hypertension Respiratory History: Reports: None, Other (See Below) Gastrointestinal History: Reports: GERD, Other (See Below) Other Gastrointestinal History: rectal fissure Genitourinary History: Reports: Urinary Incontinence 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 Musculoskeletal History: Reports: Arthritis Other Musculoskeletal History: severe pronation of feet, right foot with collapsed arch Neurological History: Reports: CVA, Other (See Below) Other Neuro History: severe mental retardation Psychiatric History: Reports: Other (See Below) 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 Endocrine/Metabolic History: Reports: None, Obesity/BMI 30+ Hematologic History: Reports: None Immunologic History: Reports: None Oncologic (Cancer) History: Reports: None Dermatologic History: Reports: None - Infectious Disease History Infectious Disease History: Reports: None - Past Surgical History Head Surgeries/Procedures: Reports: None HEENT Surgical History: Reports: Oral Surgery Cardiovascular Surgical History: Reports: None Respiratory Surgical History: Reports: None GI Surgical History: Reports: Colonoscopy Female Surgical History: Reports: Hysterectomy Endocrine Surgical History: Reports: None Neurological Surgical History: Reports: None Musculoskeletal Surgical History: Reports: None Oncologic Surgical History: Reports: None - HOME MEDS Home Medications: Home Meds Acetaminophen 650 mg PO Q4H PRN 11/07/18 [History] Calcium Carbonate/Vitamin D3 [Calcium 500 + Vit D Caplet] 1 tab PO BID 11/07/18 [History] Carbamide Peroxide [Debrox 6.5% Otic Soln] 2 drop OT BEDTIME PRN 11/07/18 [History] Celecoxib [CeleBREX] 200 mg PO DAILY 11/07/18 [History] Clotrimazole [Lotrimin AF 1% Crm] 1 applic TOP BID PRN 11/07/18 [History] Docusate Sodium [Colace] 100 mg PO BID 11/07/18 [History] Escitalopram [Lexapro] 20 mg PO DAILY 11/07/18 [History] LORazepam [Ativan] 0.5 mg PO Q4H PRN 11/07/18 [History] Lactulose [Constulose] 30 ml PO DAILY 11/07/18 [History] Lisinopril 10 mg PO DAILY 11/07/18 [History] Magnesium Hydroxide [Milk of Magnesia] 30 ml PO BEDTIME PRN 11/07/18 [History] Metoprolol Succinate 25 mg PO BID 11/07/18 [History] Multivitamin [Daily Sathya] 1 tab PO DAILY 11/07/18 [History] Nystatin 1 applic PO TID PRN 11/07/18 [History] [place]-3/DHA/Epa/Fish Oil [[place]-3 Fish Oil 1,000 MG Sfgl] 1,000 mg PO TID 11/07/18 [History] Propylene Glycol/PEG 400/Pf [Systane 0.3-0.4% Eye Drops] 1 drop EYERT DAILY [History] Simvastatin 20 mg PO DAILY 11/07/18 [History] clonazePAM [Klonopin] 1 mg PO TID 11/07/18 [History] docosanoL [Abreva 10%] 1 applic TOP BID PRN 11/07/18 [History] polyethylene glycoL 3350 [MiraLAX] 17 gm PO DAILY 11/07/18 [History] risperiDONE [Risperdal] 0.25 mg PO BID 11/07/18 [History] tiZANidine [Zanaflex] 4 mg PO BID 11/07/18 [History] Aloe Vera/Sodium Chloride [[place] Saline Nasal Gel] 1 dose OXANA Q2H PRN 12/13/19 [History] Furosemide [Lasix] 20 mg PO DAILY 12/13/19 [History] Ketoprofen [Frotek] 1 dose TOP TID 12/13/19 [History] Oxybutynin Chloride [Ditropan Xl] 10 mg PO DAILY 12/13/19 [History] Pantoprazole Sodium [Protonix] 40 mg PO QAM 12/13/19 [History] - CURRENT (IN HOUSE) MEDS Current Meds: Current Medications Lactated Ringer's (Ringers, Lactated) 1,000 mls @ 125 mls/hr IV ASDIRECTED SHIVAM Stop: 02/15/21 23:00 Lidocaine/Sodium Bicarbonate (Lidocaine 1%/Sod Bicarbonate In Ns 8.4% 1 Ml Syringe) 0.25 ml IDERM ONETIME PRN PRN Reason: Prior to IV Start Stop: 02/15/21 18:00 Sodium Chloride (Sodium Chloride 0.9% 10 Ml Syringe) 10 ml FLUSH 0900,2100 SHIVAM Stop: 02/15/21 18:00 Discontinued Medications Lactated Ringer's (Ringers, Lactated) 1,000 mls @ 125 mls/hr IV ASDIRECTED SHIVAM Stop: 02/01/21 23:00 Lidocaine/Sodium Bicarbonate (Lidocaine 1%/Sod Bicarbonate In Ns 8.4% 1 Ml Syringe) 0.25 ml IDERM ONETIME PRN PRN Reason: Prior to IV Start Stop: 02/01/21 18:00 Sodium Chloride (Sodium Chloride 0.9% 10 Ml Syringe) 10 ml FLUSH ASDIRECTED PRN PRN Reason: Keep Vein Open Stop: 02/01/21 18:00
[~2021-02-15 07:34] MED LIST changes: +Lidocaine 1% 4 ML ONE; +Propofol 200 MG/20 ML SDV ONE; +Sodium Chloride 0.9% 10 ML Syringe FLUSH SCH; +fentaNYL 100 MCG/2 ML SDV ONE
--- NOTE | 2021-02-15 08:34 | PCM48HPAN ---
Post Anesthesia Note - EVALUATION WITHIN 48HRS OF ANESTHETIC Vital Signs in Normal Range: Yes Patient Participated in Evaluation: Yes Respiratory Function Stable: Yes Airway Patent: Yes Cardiovascular Function Stable: Yes Hydration Status Stable: Yes Pain Control Satisfactory: Yes Nausea and Vomiting Control Satisfactory: Yes Mental Status Recovered: Yes Vital Signs: Last Vital Signs Temp 36.1 C 02/15/21 07:15 Pulse 60 02/15/21 07:15 Resp 16 02/15/21 07:15 BP 149/84 H 02/15/21 07:15 Pulse Ox 93 L 02/15/21 07:15
--- NOTE | 2021-02-15 08:55 | PROC ---
DATE OF OPERATION: 02/15/2021 SURGEON: Clemente Ruiz MD PREOPERATIVE DIAGNOSIS: Gastric intestinal metaplasia in the past. POSTOPERATIVE DIAGNOSES: Normal duodenum, localized gastritis in the antrum and minimal esophagitis. OPERATION PERFORMED: Esophagogastroduodenoscopy with biopsies. ESTIMATED BLOOD LOSS: Minimal. ANESTHESIA: Monitored anesthesia care. INDICATIONS AND CONSENT: Ms. Camacho is a 70-year-old female who underwent EGD back in 2019 and was found to have gastric intestinal metaplasia as well as gastric polyp and esophagitis. Due to presence of gastric intestinal metaplasia without any other cause, a repeat EGD with gastric mapping was recommended for which the patient is here today. She has no other problems. Risks, benefits, and alternatives were discussed with the patient's guardian and informed consent was obtained. DETAILS OF PROCEDURE: The patient was taken to the procedure room, placed in left lateral decubitus position. Monitored anesthesia care was induced and then we began the procedure by placing a bite block and using an Olympus scope to place into the mouth and we took it down to the stomach. As we were taking it down, we examined the esophagus which appeared normal. In the GE junction, there was minimal esophagitis and then we went into the stomach which appeared normal except there was a localized area of inflammation in the antrum, went into the second portion of duodenum which was normal. First portion was normal and bulb was normal. We started gastric mopping and this was done by biopsying the antrum, body and fundus. Antrum was biopsied both at the greater and lesser curve and body at the greater and lesser curve as well as the fundus was also biopsied. On retroflexion, there was no hiatal hernia. We went back to the GE junction and we biopsied the area of inflammation and then at this point, we went and inspected the stomach again. All biopsies were done with cold forceps. EBL was minimal. Air was suctioned out and procedure was concluded. The patient will be allowed to recover and return to her facility and follow up with Sherita Vergara in 2 weeks. MMODAL /[id number] ZHAO
[2021-02-15 09:42] VITALS: BP 119/75; PULSE 61
== END 2021-02-15 09:35 | disposition home or self-care (01) ==
LOC: JD.SDS 07:34
PROVIDERS: ATTEND Surgery
DX: K29.50 Unspecified chronic gastritis without bleeding (principal); K22.10 Ulcer of esophagus without bleeding; K31.A0 Gastric intestinal metaplasia, unspecified; K31.89 Other diseases of stomach and duodenum; K31.7 Polyp of stomach and duodenum; I10 Essential (primary) hypertension; E78.5 Hyperlipidemia, unspecified; K21.9 Gastro-esophageal reflux disease without esophagitis; Z98.890 Other specified postprocedural states; Z79.899 Other long term (current) drug therapy; Z88.0 Allergy status to penicillin; Z88.2 Allergy status to sulfonamides; Z88.8 Allergy status to other drugs, medicaments and biological substances
CPT/HCPCS: 43239; 88305; 88342; J2704; J3010; J7120; 00731; 99100

== ENCOUNTER 2023-01-31 09:39 | Emergency (ER) | payer MEDICARE, MEDICAID ==
[2023-01-31] MEDS ORDERED: Ondansetron 4 MG/2 ML SDV IVPUSH ONE (10:39)
[2023-01-31] MEDS ORDERED: Sodium Chloride 0.9% 10 ML Syringe FLUSH PRN (10:39)
[2023-01-31] MEDS ORDERED: Sodium Chloride 0.9% 1,000 ML IV STA (10:39)
[2023-01-31] MEDS ORDERED: HYDROmorphone 0.5 MG/0.5 ML Syringe IVPUSH ONE (10:41)
[2023-01-31] MEDS ORDERED: Sodium Chloride 0.9% 10 ML Syringe FLUSH ONE ×2 (10:45→11:55)
[2023-01-31] MEDS ORDERED: Iopamidol 612 MG/ML 100 ML Bottle IVPUSH ONE ×2 (10:45→11:55)
[2023-01-31 11:25] LABS: BASOPHILS PERCENT AUTO 0.5 % (0.0-1.0); EOSINOPHILS ABSOLUTE AUTO 0.1 K/mm3 (0.0-0.4); EOSINOPHILS PERCENT AUTO 1.4 % (0.0-6.0); HEMATOCRIT 38.5 % (37.0-47.0); HEMOGLOBIN 12.7 gm/dl (12.0-16.0); IMMATURE GRAN ABSOLUTE AUTO 0.02 K/mm3 (0.00-0.05); IMMATURE GRAN PERCENT AUTO 0.4 % (0.0-0.4); LYMPHOCYTES ABSOLUTE AUTO 0.8 K/mm3 (1.0-4.8); LYMPHOCYTES PERCENT AUTO 14.7 % (24.0-44.0); MEAN CORPUSCULAR HEMOGLOBIN 28.3 pg (28.0-32.0); MEAN CORPUSCULAR VOLUME 85.9 fl (83.0-99.0); MEAN PLATELET VOLUME 9.4 fl (9.4-12.3); MONOCYTES ABSOLUTE AUTO 1.7 K/mm3 (0.0-0.8); MONOCYTES PERCENT AUTO 30.2 % (0.0-8.0); NEUTROPHILS PERCENT AUTO 52.8 % (41.0-71.0); PLATELET COUNT,PLT 163 K/mm3 (150-400); RED BLOOD CELL COUNT 4.48 M/mm3 (4.10-5.30); WHITE BLOOD CELL COUNT,WBC 5.59 K/mm3 (3.9-11.3)
[2023-01-31 11:46] LABS: A/G RATIO 0.7 (1-2); ALBUMIN 2.4 g/dl (3.4-5.0); ANION GAP 10.5 (5-15); BILIRUBIN TOTAL 0.3 mg/dL (0.2-1.0); CALCIUM 8.5 mg/dL (8.5-10.1); CREATININE 1.2 mg/dL (0.55-1.02); EST CRCL DRUG DOSING (CG) 30.44 mL/min; POTASSIUM,K 3.5 mEq/L (3.5-5.1)
[2023-01-31 12:14] LABS: APPEARANCE,URINE CLEAR (Clear); BILIRUBIN,URINE NEGATIVE (Negative); COLOR,URINE YELLOW (Yellow); GLUCOSE,URINE NEGATIVE (Negative); KETONES,URINE NEGATIVE (Negative); LEUKOCYTE ESTERASE,URINE 1+ (Negative); NITRITE,URINE NEGATIVE (Negative); OCCULT BLOOD,URINE NEGATIVE (Negative); PH,URINE 6.5 (5.0-8.0); PROTEIN,URINE NEGATIVE (Negative); UROBILINOGEN,URINE 0.2 (0.2-1.0)
[2023-01-31 12:49] LABS: BACTERIA,URINE MANY /hpf (FEW); CALCIUM OXALATE CRYSTALS,URINE FEW; HYALINE CASTS,URINE 0-5 /lpf (0-5); MUCUS,URINE FEW /hpf (FEW); RBC,URINE 0-5 /hpf (0-5); SQUAMOUS EPITHELIAL CELLS,UR 0-5 /hpf (0-5)
[2023-01-31 15:32] VITALS: BP 103/68; PULSE 69
== END 2023-01-31 15:06 | disposition home or self-care (01) ==
LOC: JD.ED 09:39
DX: A08.4 Viral intestinal infection, unspecified (principal); N30.00 Acute cystitis without hematuria; I11.0 Hypertensive heart disease with heart failure; I50.9 Heart failure, unspecified; E78.00 Pure hypercholesterolemia, unspecified; M19.90 Unspecified osteoarthritis, unspecified site; E66.9 Obesity, unspecified; Z68.38 Body mass index [BMI] 38.0-38.9, adult; Z88.8 Allergy status to other drugs, medicaments and biological substances; Z88.0 Allergy status to penicillin; Z88.2 Allergy status to sulfonamides; Z79.899 Other long term (current) drug therapy
CPT/HCPCS: 36415; 74176; 80053; 81001; 83690; 85025; 87086; 87088; 87186; 96361; 96374; 96375; 99284; C1758; J1170; J2405; J3490; J7030

== ENCOUNTER 2023-08-04 07:24 | Inpatient (IN) | payer MEDICARE, MEDICAID ==
[2023-08-04] MEDS: Sodium Chloride 0.9% 1,000 ML IV STA (08:08)
[2023-08-04] MEDS: Sodium Chloride 0.9% 10 ML Syringe FLUSH PRN (08:08)
[2023-08-04] MEDS: Ondansetron 4 MG/2 ML SDV IVPUSH ONE (08:09)
[2023-08-04] MEDS: HYDROmorphone 0.5 MG/0.5 ML Syringe IVPUSH ONE (08:11)
[2023-08-04] MEDS: Labetalol 100 MG/20 ML MDV IVPUSH ONE (08:13)
[2023-08-04 08:30] LABS: BASOPHILS PERCENT AUTO 0.2 % (0.0-1.0); EOSINOPHILS PERCENT AUTO 0.1 % (0.0-6.0); HEMATOCRIT 48.1 % (37.0-47.0); IMMATURE GRAN ABSOLUTE AUTO 0.03 K/mm3 (0.00-0.05); IMMATURE GRAN PERCENT AUTO 0.3 % (0.0-0.4); LYMPHOCYTES ABSOLUTE AUTO 1.4 K/mm3 (1.0-4.8); LYMPHOCYTES PERCENT AUTO 15.6 % (24.0-44.0); MEAN CORPUSCULAR HEMOGLOBIN 27.8 pg (28.0-32.0); MEAN CORPUSCULAR HGB CONC 32.2 g/dl (32.0-36.0); MEAN CORPUSCULAR VOLUME 86.4 fl (83.0-99.0); MEAN PLATELET VOLUME 9.3 fl (9.4-12.3); MONOCYTES ABSOLUTE AUTO 0.5 K/mm3 (0.0-0.8); MONOCYTES PERCENT AUTO 5.6 % (0.0-8.0); NEUTROPHILS ABSOLUTE AUTO 7.1 K/mm3 (1.8-7.7); NEUTROPHILS PERCENT AUTO 78.2 % (41.0-71.0); PLATELET COUNT,PLT 163 K/mm3 (150-400); RED BLOOD CELL COUNT 5.57 M/mm3 (4.10-5.30); WHITE BLOOD CELL COUNT,WBC 9.09 K/mm3 (3.9-11.3)
[2023-08-04 08:31] LABS: HEMOGLOBIN 15.5 gm/dl (12.0-16.0)
[2023-08-04 09:03] LABS: A/G RATIO 0.9 (1-2); ALBUMIN 3.3 g/dl (3.4-5.0); BILIRUBIN TOTAL 0.5 mg/dL (0.2-1.0); CALCIUM 9.7 mg/dL (8.5-10.1); EST CRCL DRUG DOSING (CG) 36.53 mL/min; PROTEIN TOTAL,TP 6.8 g/dl (6.4-8.2)
[2023-08-04 09:08] LABS: APPEARANCE,URINE CLEAR (Clear); BILIRUBIN,URINE NEGATIVE (Negative); COLOR,URINE YELLOW (Yellow); GLUCOSE,URINE NEGATIVE (Negative); KETONES,URINE NEGATIVE (Negative); LEUKOCYTE ESTERASE,URINE TRACE (Negative); NITRITE,URINE POSITIVE (Negative); OCCULT BLOOD,URINE NEGATIVE (Negative); PH,URINE 6.5 (5.0-8.0); PROTEIN,URINE 1+ (Negative); UROBILINOGEN,URINE 0.2 (0.2-1.0)
[2023-08-04 09:23] LABS: BACTERIA,URINE MANY /hpf (FEW); EPITHELIAL CELLS,URINE 0-5 /hpf (0-5); RBC,URINE 0-5 /hpf (0-5)
[2023-08-04 09:24] LABS: MUCUS,URINE FEW /hpf (FEW)
[2023-08-04] MEDS: Iopamidol 612 MG/ML 30 ML SDV IVPUSH ONE (09:30)
[2023-08-04] MEDS: cefTRIAXone 2 GM in Sodium Chloride 0.9% 100 ML IV ONE (10:00)
[2023-08-04] MEDS: Benzocaine 20% Topical Spray UD MUCMEM ONE (11:26)
[2023-08-04] MEDS ORDERED: Ketorolac 15 MG/ML SDV IM PRN (11:45)
[2023-08-04] MEDS ORDERED: Ondansetron 4 MG/2 ML SDV IV PRN (11:45)
[2023-08-04] MEDS: Lactated Ringers 1,000 ML IV SCH (13:32)
[2023-08-04] MEDS: ClonazePAM 1 MG Tab PO SCH (15:19)
[2023-08-04] MEDS: Metoprolol Succinate 25 MG Tab.ER PO SCH (23:22)
[2023-08-05] MEDS: Diatrizoate Meglumine/Diatrizoate Sodium 37% 120 ML Bottle PO ONE ×2 (00:59→07:38)
[2023-08-05 05:41] LABS: BASOPHILS PERCENT AUTO 0.3 % (0.0-1.0); EOSINOPHILS PERCENT AUTO 0.3 % (0.0-6.0); HEMOGLOBIN 14.1 gm/dl (12.0-16.0); IMMATURE GRAN ABSOLUTE AUTO 0.03 K/mm3 (0.00-0.05); IMMATURE GRAN PERCENT AUTO 0.4 % (0.0-0.4); LYMPHOCYTES ABSOLUTE AUTO 1.2 K/mm3 (1.0-4.8); LYMPHOCYTES PERCENT AUTO 15.8 % (24.0-44.0); MEAN CORPUSCULAR HGB CONC 32.8 g/dl (32.0-36.0); MEAN CORPUSCULAR VOLUME 85.5 fl (83.0-99.0); MEAN PLATELET VOLUME 9.2 fl (9.4-12.3); MONOCYTES ABSOLUTE AUTO 1.2 K/mm3 (0.0-0.8); MONOCYTES PERCENT AUTO 15.5 % (0.0-8.0); NEUTROPHILS ABSOLUTE AUTO 5.2 K/mm3 (1.8-7.7); NEUTROPHILS PERCENT AUTO 67.7 % (41.0-71.0); PLATELET COUNT,PLT 173 K/mm3 (150-400); RED BLOOD CELL COUNT 5.03 M/mm3 (4.10-5.30); WHITE BLOOD CELL COUNT,WBC 7.68 K/mm3 (3.9-11.3)
[2023-08-05 05:43] LABS: ANION GAP 9.8 (5-15); BUN/CREATININE RATIO 16.3 (14-18); CALCIUM 9.4 mg/dL (8.5-10.1); CREATININE 0.8 mg/dL (0.55-1.02); EST CRCL DRUG DOSING (CG) 45.66 mL/min; MAGNESIUM 1.9 mg/dL (1.8-2.4); POTASSIUM,K 3.8 mEq/L (3.5-5.1)
[2023-08-05] MEDS: cefTRIAXone 1 GM in Sodium Chloride 0.9% 100 ML IV SCH (09:28)
[2023-08-05] MEDS: Citalopram 20 MG Tab PO SCH (09:29)
[2023-08-05] MEDS ORDERED: Lidocaine 1% 5 ML VIAL ONE (12:26)
[2023-08-05] MEDS ORDERED: Rocuronium 50 MG/5 ML Vial ONE (12:26)
[2023-08-05] MEDS ORDERED: Midazolam 1 MG/ML 2 ML SDV ONE (12:26)
[2023-08-05] MEDS ORDERED: Ondansetron 4 MG/2 ML SDV ONE (12:26)
[2023-08-05] MEDS ORDERED: Propofol 200 MG/20 ML SDV ONE (12:26)
[2023-08-05] MEDS ORDERED: fentaNYL 250 MCG/5 ML SDV ONE (12:26)
[2023-08-05] MEDS ORDERED: Succinylcholine 200 MG/10 ML MDV ONE (12:29)
[2023-08-05] MEDS ORDERED: Ondansetron 4 MG/2 ML SDV IVPUSH PRN (14:04)
[2023-08-05] MEDS ORDERED: HYDROmorphone 0.5 MG/0.5 ML Syringe IVPUSH PRN (14:04)
[2023-08-05] MEDS ORDERED: Dexamethasone 4 MG/ML 5 ML MDV ONE (14:18)
[2023-08-05] MEDS ORDERED: Sugammadex Sodium 200 MG/2 ML VIAL IV ONE (14:48)
[2023-08-05] MEDS ORDERED: Lactated Ringers 1,000 ML ONE ×2 (15:02→15:31)
[2023-08-05] MEDS ORDERED: HYDROmorphone 0.5 MG/0.5 ML Syringe ONE (15:19)
[2023-08-05] MEDS: Bupivacaine 0.5% 30 ML SDV ONE (15:32)
[2023-08-05] MEDS: EPINEPHrine 1 MG/ML SDV ONE (15:32)
[2023-08-05] MEDS: fentaNYL 100 MCG/2 ML SDV IVPUSH PRN (21:16)
[2023-08-06] MEDS: HYDROmorphone 0.5 MG/0.5 ML Syringe IVPUSH PRN (03:27)
[2023-08-06 04:30] LABS: MEAN CORPUSCULAR HEMOGLOBIN 28.4 pg (28.0-32.0); MEAN CORPUSCULAR HGB CONC 31.9 g/dl (32.0-36.0); MEAN PLATELET VOLUME 9.3 fl (9.4-12.3); PLATELET COUNT,PLT 194 K/mm3 (150-400); RED BLOOD CELL COUNT 3.49 M/mm3 (4.10-5.30); WHITE BLOOD CELL COUNT,WBC 11.71 K/mm3 (3.9-11.3)
[2023-08-06 04:32] LABS: HEMOGLOBIN 9.9 gm/dl (12.0-16.0); MEAN CORPUSCULAR VOLUME 88.8 fl (83.0-99.0)
[2023-08-06] MEDS: ClonazePAM 1 MG Tab PO ONE (04:36)
[2023-08-06 04:39] LABS: ANION GAP 8.9 (5-15); BUN/CREATININE RATIO 21.3 (14-18); CALCIUM 8.1 mg/dL (8.5-10.1); CREATININE 0.8 mg/dL (0.55-1.02); EST CRCL DRUG DOSING (CG) 45.66 mL/min; POTASSIUM,K 3.9 mEq/L (3.5-5.1)
[2023-08-06] MEDS: HYDROmorphone 1 MG/ML Syringe IVPUSH PRN (07:27)
[2023-08-06 13:56] LABS: HEMATOCRIT 29.6 % (37.0-47.0); HEMOGLOBIN 9.3 gm/dl (12.0-16.0); MEAN CORPUSCULAR HEMOGLOBIN 28.4 pg (28.0-32.0); MEAN CORPUSCULAR HGB CONC 31.4 g/dl (32.0-36.0); MEAN CORPUSCULAR VOLUME 90.5 fl (83.0-99.0); MEAN PLATELET VOLUME 9.2 fl (9.4-12.3); PLATELET COUNT,PLT 186 K/mm3 (150-400); RED BLOOD CELL COUNT 3.27 M/mm3 (4.10-5.30); WHITE BLOOD CELL COUNT,WBC 10.57 K/mm3 (3.9-11.3)
[2023-08-07 05:59] LABS: HEMATOCRIT 24.3 % (37.0-47.0); MEAN CORPUSCULAR HEMOGLOBIN 28.8 pg (28.0-32.0); MEAN CORPUSCULAR HGB CONC 31.3 g/dl (32.0-36.0); MEAN PLATELET VOLUME 9.6 fl (9.4-12.3); PLATELET COUNT,PLT 148 K/mm3 (150-400); RED BLOOD CELL COUNT 2.64 M/mm3 (4.10-5.30); WHITE BLOOD CELL COUNT,WBC 8.01 K/mm3 (3.9-11.3)
[2023-08-07 06:01] LABS: HEMOGLOBIN 7.6 gm/dl (12.0-16.0)
[2023-08-07 06:13] LABS: BUN/CREATININE RATIO 25.7 (14-18); CALCIUM 8.4 mg/dL (8.5-10.1); CREATININE 0.7 mg/dL (0.55-1.02); EST CRCL DRUG DOSING (CG) 52.18 mL/min
[2023-08-07] MEDS ORDERED: Bisacodyl 10 MG Supp RECTAL PRN (07:57)
[2023-08-07] MEDS: Docusate Sodium 100 MG Cap PO SCH (09:16)
[2023-08-07] MEDS: Furosemide 40 MG Tab PO SCH (09:16)
[2023-08-07] MEDS: Pantoprazole 40 MG Tab.CR PO SCH (09:16)
[2023-08-07] MEDS: Oxybutynin 5 MG Tab.ER PO SCH (09:17)
[2023-08-07] MEDS: Acetaminophen/HYDROcodone 325-5 MG Tab PO PRN (11:26)
[2023-08-07] MEDS: D5 1/2 NS w/ 20 mEq/L KCl 1,000 ML IV SCH (14:33)
[2023-08-07 16:11] LABS: HEMATOCRIT 26.6 % (37.0-47.0); HEMOGLOBIN 8.1 gm/dl (12.0-16.0); MEAN CORPUSCULAR HEMOGLOBIN 27.9 pg (28.0-32.0); MEAN CORPUSCULAR HGB CONC 30.5 g/dl (32.0-36.0); MEAN CORPUSCULAR VOLUME 91.7 fl (83.0-99.0); MEAN PLATELET VOLUME 9.4 fl (9.4-12.3); PLATELET COUNT,PLT 164 K/mm3 (150-400); WHITE BLOOD CELL COUNT,WBC 9.66 K/mm3 (3.9-11.3)
[2023-08-07] MEDS: Lactulose Soln 10 GM/15 ML 30 ML UD Cup PO SCH (20:23)
[2023-08-07] MEDS: atorvaSTATin 20 MG Tab PO SCH (20:25)
[2023-08-08 06:20] LABS: BASOPHILS PERCENT AUTO 0.1 % (0.0-1.0); EOSINOPHILS ABSOLUTE AUTO 0.1 K/mm3 (0.0-0.4); EOSINOPHILS PERCENT AUTO 1.5 % (0.0-6.0); HEMATOCRIT 24.9 % (37.0-47.0); HEMOGLOBIN 7.8 gm/dl (12.0-16.0); IMMATURE GRAN ABSOLUTE AUTO 0.04 K/mm3 (0.00-0.05); IMMATURE GRAN PERCENT AUTO 0.5 % (0.0-0.4); LYMPHOCYTES ABSOLUTE AUTO 1.5 K/mm3 (1.0-4.8); LYMPHOCYTES PERCENT AUTO 18.1 % (24.0-44.0); MEAN CORPUSCULAR HEMOGLOBIN 28.6 pg (28.0-32.0); MEAN CORPUSCULAR HGB CONC 31.3 g/dl (32.0-36.0); MEAN CORPUSCULAR VOLUME 91.2 fl (83.0-99.0); MEAN PLATELET VOLUME 9.2 fl (9.4-12.3); MONOCYTES ABSOLUTE AUTO 1.1 K/mm3 (0.0-0.8); MONOCYTES PERCENT AUTO 13.1 % (0.0-8.0); NEUTROPHILS ABSOLUTE AUTO 5.4 K/mm3 (1.8-7.7); NEUTROPHILS PERCENT AUTO 66.7 % (41.0-71.0); PLATELET COUNT,PLT 153 K/mm3 (150-400); RED BLOOD CELL COUNT 2.73 M/mm3 (4.10-5.30); WHITE BLOOD CELL COUNT,WBC 8.12 K/mm3 (3.9-11.3)
[2023-08-09 07:12] LABS: BASOPHILS PERCENT AUTO 0.2 % (0.0-1.0); EOSINOPHILS PERCENT AUTO 3.4 % (0.0-6.0); HEMATOCRIT 24.3 % (37.0-47.0); HEMOGLOBIN 7.6 gm/dl (12.0-16.0); IMMATURE GRAN PERCENT AUTO 0.3 % (0.0-0.4); LYMPHOCYTES PERCENT AUTO 22.6 % (24.0-44.0); MEAN CORPUSCULAR HEMOGLOBIN 28.3 pg (28.0-32.0); MEAN CORPUSCULAR HGB CONC 31.3 g/dl (32.0-36.0); MEAN CORPUSCULAR VOLUME 90.3 fl (83.0-99.0); MEAN PLATELET VOLUME 9.6 fl (9.4-12.3); MONOCYTES PERCENT AUTO 11.4 % (0.0-8.0); NEUTROPHILS ABSOLUTE AUTO 3.7 K/mm3 (1.8-7.7); NEUTROPHILS PERCENT AUTO 62.1 % (41.0-71.0); PLATELET COUNT,PLT 174 K/mm3 (150-400); RED BLOOD CELL COUNT 2.69 M/mm3 (4.10-5.30); WHITE BLOOD CELL COUNT,WBC 5.94 K/mm3 (3.9-11.3)
[2023-08-09 07:13] LABS: EOSINOPHILS ABSOLUTE AUTO 0.2 K/mm3 (0.0-0.4); IMMATURE GRAN ABSOLUTE AUTO 0.02 K/mm3 (0.00-0.05); LYMPHOCYTES ABSOLUTE AUTO 1.3 K/mm3 (1.0-4.8); MONOCYTES ABSOLUTE AUTO 0.7 K/mm3 (0.0-0.8)
[2023-08-09] MEDS ORDERED: Sodium Chloride 0.9% 10 ML Syringe FLUSH PRN (08:26)
[2023-08-09] MEDS: Sodium Chloride 0.9% 500 ML IV ONE (14:52)
[2023-08-10 06:56] LABS: ANION GAP 9.4 (5-15); BUN/CREATININE RATIO 14.3 (14-18); CALCIUM 8.8 mg/dL (8.5-10.1); CREATININE 0.7 mg/dL (0.55-1.02); EST CRCL DRUG DOSING (CG) 52.18 mL/min; POTASSIUM,K 3.4 mEq/L (3.5-5.1)
[2023-08-10 07:08] LABS: HEMATOCRIT 28.8 % (37.0-47.0); MEAN CORPUSCULAR HEMOGLOBIN 28.4 pg (28.0-32.0); MEAN CORPUSCULAR HGB CONC 32.3 g/dl (32.0-36.0); MEAN CORPUSCULAR VOLUME 88.1 fl (83.0-99.0); MEAN PLATELET VOLUME 9.5 fl (9.4-12.3); PLATELET COUNT,PLT 187 K/mm3 (150-400); RED BLOOD CELL COUNT 3.27 M/mm3 (4.10-5.30); WHITE BLOOD CELL COUNT,WBC 6.34 K/mm3 (3.9-11.3)
[2023-08-10 07:12] LABS: HEMOGLOBIN 9.3 gm/dl (12.0-16.0)
[2023-08-10] MEDS: Potassium Chloride 20 MEQ Tab.ER PO ONE (08:33)
[2023-08-10 13:22] VITALS: BP 126/95; PULSE 91
== END 2023-08-10 14:20 | disposition home or self-care (01) | DRG 336 ==
LOC: JD.ED 07:24 → JD.MS 11:45
PROVIDERS: ADMIT Surgery; ATTEND Surgery
PROC: 0D9670Z Drainage of Stomach with Drainage Device, Via Natural or Artificial Opening (ICD-10-PCS; 2023-08-04)
PROC: 0DB83ZZ Excision of Small Intestine, Percutaneous Approach (ICD-10-PCS; 2023-08-05)
PROC: 0DN83ZZ Release Small Intestine, Percutaneous Approach (ICD-10-PCS; principal; 2023-08-05 15:00)
PROC: 30233N1 Transfusion of Nonautologous Red Blood Cells into Peripheral Vein, Percutaneous Approach (ICD-10-PCS; 2023-08-09)
DX: K56.609 Unspecified intestinal obstruction, unspecified as to partial versus complete obstruction (principal); K56.52 Intestinal adhesions [bands] with complete obstruction; D62 Acute posthemorrhagic anemia; N39.0 Urinary tract infection, site not specified; K92.1 Melena; R62.50 Unspecified lack of expected normal physiological development in childhood; E78.00 Pure hypercholesterolemia, unspecified; I11.0 Hypertensive heart disease with heart failure; I50.9 Heart failure, unspecified; Z88.0 Allergy status to penicillin; K21.9 Gastro-esophageal reflux disease without esophagitis; Z66 Do not resuscitate; M19.90 Unspecified osteoarthritis, unspecified site; G80.9 Cerebral palsy, unspecified; R45.1 Restlessness and agitation; H91.90 Unspecified hearing loss, unspecified ear; F79 Unspecified intellectual disabilities; F32.A Depression, unspecified; E66.9 Obesity, unspecified; Z80.0 Family history of malignant neoplasm of digestive organs; Z88.2 Allergy status to sulfonamides; Z88.8 Allergy status to other drugs, medicaments and biological substances; Z79.899 Other long term (current) drug therapy; Z68.38 Body mass index [BMI] 38.0-38.9, adult; Z86.16 Personal history of COVID-19; Z98.890 Other specified postprocedural states; Z90.710 Acquired absence of both cervix and uterus; Z99.81 Dependence on supplemental oxygen
CPT/HCPCS: 36415; 36430; 43752; 70450; 70450-26; 71045; 71045-26; 74018; 74018-26; 74177; 74177-26; 80048; 80053; 81001; 83735; 84484; 85025; 85027; 86850; 86900; 86901; 86922; 87040; 87086; 87088; 87186; 87641; 93005; 93010; 94760; 94761; 96361; 96365; 96375; 97161-GP; 99285; 99285-25; A9270-GY; C1758; J0171; J0330; J0665; J0696; J1100; J1170; J1921; J2250; J2405; J2704; J3010; J3480; J3490; J7030; J7040; J7120; P9016; Q9963; Q9967

== ENCOUNTER 2024-01-26 07:18 | Inpatient (IN) | payer MEDICARE, MEDICAID ==
[2024-01-26] MEDS ORDERED: Sodium Chloride 0.9% 10 ML Syringe FLUSH PRN (07:46)
[2024-01-26] MEDS: HYDROmorphone 0.5 MG/0.5 ML Syringe IVPUSH PRN (08:16)
[2024-01-26] MEDS: Sodium Chloride 0.9% 10 ML Syringe FLUSH PRN (08:20)
[2024-01-26] MEDS: Sodium Chloride 0.9% 500 ML IV SCH (08:20)
[2024-01-26 08:30] LABS: BASOPHILS PERCENT AUTO 0.1 % (0.0-1.0); EOSINOPHILS PERCENT AUTO 0.1 % (0.0-6.0); HEMATOCRIT 42.9 % (37.0-47.0); HEMOGLOBIN 13.3 gm/dl (12.0-16.0); IMMATURE GRAN ABSOLUTE AUTO 0.03 K/mm3 (0.00-0.05); IMMATURE GRAN PERCENT AUTO 0.4 % (0.0-0.4); LYMPHOCYTES ABSOLUTE AUTO 0.6 K/mm3 (1.0-4.8); LYMPHOCYTES PERCENT AUTO 6.8 % (24.0-44.0); MEAN CORPUSCULAR HEMOGLOBIN 24.9 pg (28.0-32.0); MEAN CORPUSCULAR VOLUME 80.2 fl (83.0-99.0); MEAN PLATELET VOLUME 9.3 fl (9.4-12.3); MONOCYTES ABSOLUTE AUTO 0.8 K/mm3 (0.0-0.8); MONOCYTES PERCENT AUTO 9.4 % (0.0-8.0); NEUTROPHILS ABSOLUTE AUTO 6.9 K/mm3 (1.8-7.7); NEUTROPHILS PERCENT AUTO 83.2 % (41.0-71.0); PLATELET COUNT,PLT 201 K/mm3 (150-400); RED BLOOD CELL COUNT 5.35 M/mm3 (4.10-5.30); WHITE BLOOD CELL COUNT,WBC 8.33 K/mm3 (3.9-11.3)
[2024-01-26 08:50] LABS: INR 1.04
[2024-01-26 08:55] LABS: A/G RATIO 0.8 (1-2); ALBUMIN 3.1 g/dl (3.4-5.0); ANION GAP 10.8 (5-15); BILIRUBIN TOTAL 0.5 mg/dL (0.2-1.0); BUN/CREATININE RATIO 25.6 (14-18); CALCIUM 8.9 mg/dL (8.5-10.1); CREATININE 0.9 mg/dL (0.55-1.02); EST CRCL DRUG DOSING (CG) 39.99 mL/min; POTASSIUM,K 3.8 mEq/L (3.5-5.1); PROTEIN TOTAL,TP 6.8 g/dl (6.4-8.2)
[2024-01-26] MEDS: Iopamidol 612 MG/ML 100 ML Bottle IVPUSH ONE ×2 (09:11→21:51)
[2024-01-26] MEDS: Sodium Chloride 0.9% 10 ML Syringe FLUSH ONE (09:11)
[2024-01-26] MEDS: Benzocaine 20% Topical Spray UD MUCMEM ONE (11:50)
[2024-01-26] MEDS ORDERED: Acetaminophen 325 MG Tab PO PRN (12:06)
[2024-01-26] MEDS ORDERED: Acetaminophen/oxyCODONE 325-5 MG Tab PO PRN (12:06)
[2024-01-26] MEDS ORDERED: Ondansetron 4 MG/2 ML SDV IV PRN (12:06)
[2024-01-26 12:33] LABS: APPEARANCE,URINE SLT CLOUDY (Clear); BILIRUBIN,URINE NEGATIVE (Negative); COLOR,URINE YELLOW (Yellow); GLUCOSE,URINE NEGATIVE (Negative); KETONES,URINE NEGATIVE (Negative); LEUKOCYTE ESTERASE,URINE TRACE (Negative); NITRITE,URINE POSITIVE (Negative); OCCULT BLOOD,URINE NEGATIVE (Negative); PROTEIN,URINE 1+ (Negative); UROBILINOGEN,URINE 0.2 (0.2-1.0)
[2024-01-26 12:55] LABS: EPITHELIAL CELLS,URINE 0-5 /hpf (0-5); RBC,URINE 0-5 /hpf (0-5); WBC,URINE 20-30 /hpf (0-5)
[2024-01-26 12:56] LABS: BACTERIA,URINE FEW /hpf (FEW); MUCUS,URINE FEW /hpf (FEW)
[2024-01-26] MEDS: Dextrose 5%-0.45% NaCl 1,000 ML IV SCH (13:30)
[2024-01-26] MEDS ORDERED: Metoprolol Tartrate 5 MG/5 ML SDV IVPUSH PRN (14:47)
[2024-01-26] MEDS ORDERED: Carboxymethylcellulose Sodium 1% Ophth Gel 15 ML Bottle EYEBOTH PRN (14:49)
[2024-01-26] MEDS: LORazepam 2 MG/ML SDV IVPUSH PRN (17:14)
[2024-01-26] MEDS ORDERED: hydrALAZINE 20 MG/ML SDV IVPUSH PRN (17:38)
[2024-01-26] MEDS ORDERED: Labetalol 100 MG/20 ML MDV IVPUSH PRN (17:38)
[2024-01-27 06:03] LABS: A/G RATIO 0.7 (1-2); ALBUMIN 2.6 g/dl (3.4-5.0); ANION GAP 11.5 (5-15); BILIRUBIN TOTAL 0.3 mg/dL (0.2-1.0); BUN/CREATININE RATIO 14.3 (14-18); CALCIUM 8.2 mg/dL (8.5-10.1); CREATININE 0.7 mg/dL (0.55-1.02); EST CRCL DRUG DOSING (CG) 51.41 mL/min; MAGNESIUM 1.9 mg/dL (1.8-2.4); PHOSPHORUS 2.2 mg/dL (2.6-4.7); POTASSIUM,K 3.5 mEq/L (3.5-5.1); PROTEIN TOTAL,TP 6.2 g/dl (6.4-8.2)
[2024-01-27] MEDS: Pantoprazole 40 MG Vial IVPUSH SCH (09:18)
[2024-01-27] MEDS: Carboxymethylcellulose Sodium 1% Ophth Gel 15 ML Bottle EYELF SCH (09:18)
[2024-01-27] MEDS: Potassium Phosphates 30 MMOLE in Sodium Chloride 0.9% 500 ML IV ONE (09:19)
[2024-01-27] MEDS: Cetirizine 10 MG Tab PO ONE (11:03)
[2024-01-27 12:45] VITALS: BP 138/88; PULSE 98
[2024-01-27] MEDS ORDERED: SODIUM CHLORIDE NASBOTH PRN (13:30)
[2024-01-27] MEDS ORDERED: Non-Formulary Medication 1 Each (Ondansetron [Zofran Odt] 4 MG Tab.Dis) PO PRN (13:30)
[2024-01-27] MEDS ORDERED: GUAIFENESIN PO PRN (13:30)
[2024-01-27] MEDS ORDERED: PHENOL MM PRN (13:30)
[2024-01-27] MEDS ORDERED: [UNRECOGNIZED DRUG - OTHER] NASBOTH PRN (13:30)
[2024-01-27] MEDS ORDERED: CARBAMIDE PEROXIDE EARBOTH PRN (13:30)
[2024-01-27] MEDS ORDERED: [UNRECOGNIZED DRUG - OTHER] PO PRN (13:30)
[2024-01-27] MEDS ORDERED: Non-Formulary Medication 1 Each (Denosumab [Prolia] 60 MG/ML Syringe) SQ SCH (13:30)
[2024-01-27] MEDS ORDERED: DEXTROMETHORPHAN PO PRN (13:30)
[2024-01-27] MEDS ORDERED: SODIUM CHLORIDE 3% NEB PRN (13:30)
[2024-01-27] MEDS ORDERED: Non-Formulary Medication 1 Each (Triamcinolone Acetonide 15 GM Tube) PO SCH (13:30)
[2024-01-27] MEDS ORDERED: MENTHOL TP PRN (13:30)
[2024-01-27] MEDS ORDERED: DOCOSANOL TOP PRN (13:30)
[2024-01-27] MEDS ORDERED: [UNRECOGNIZED DRUG - OTHER] NEB PRN (13:30)
[2024-01-27] MEDS ORDERED: Aloe Vera/Sodium Chloride Gel 14.1 GM Tube NAS PRN (13:30)
[2024-01-27] MEDS ORDERED: Non-Formulary Medication 1 Each (Omega-3/Dha/Epa/Fish Oil [Omega-3 Fish Oil 1,000 Mg Sfgl] PO SCH (15:00)
[2024-01-27] MEDS ORDERED: DICLOFENAC SODIUM TP SCH (17:00)
[2024-01-27] MEDS ORDERED: Non-Formulary Medication 1 Each (Simvastatin 20 MG Tablet) PO SCH (21:00)
[2024-01-27] MEDS ORDERED: Non-Formulary Medication 1 Each (Tizanidine [Zanaflex] 4 MG Tablet) PO SCH (21:00)
[2024-01-27] MEDS ORDERED: Non-Formulary Medication 1 Each (Docusate Sodium [Colace] 100 MG Cap) PO SCH (21:00)
[2024-01-27] MEDS ORDERED: Non-Formulary Medication 1 Each (Metoprolol Succinate [Metoprolol Succinate] 25 MG Tab.Er. PO SCH (21:00)
[2024-01-27] MEDS ORDERED: Non-Formulary Medication 1 Each (Lactulose 10 GM/15 ML Bottle) PO SCH (21:00)
[2024-01-28] MEDS ORDERED: Non-Formulary Medication 1 Each (Tizanidine [Zanaflex] 4 MG Tablet) PO SCH (07:00)
[2024-01-28] MEDS ORDERED: LACTOBACILLUS ACIDOPHILUS PO SCH (08:00)
[2024-01-28] MEDS ORDERED: OXYBUTYNIN CHLORIDE 10 MG PO SCH (08:00)
[2024-01-28] MEDS ORDERED: Non-Formulary Medication 1 Each (Furosemide [Furosemide] 40 MG Tablet) PO SCH (08:00)
[2024-01-28] MEDS ORDERED: MELOXICAM 7.5 MG PO SCH (08:00)
[2024-01-28] MEDS ORDERED: Non-Formulary Medication 1 Each (Methenamine Hippurate 1 GM Tablet) PO SCH (08:00)
[2024-01-28] MEDS ORDERED: Non-Formulary Medication 1 Each (Escitalopram 20 MG Tablet) PO SCH (08:00)
[2024-01-28] MEDS ORDERED: Non-Formulary Medication 1 Each (Polyethylene Glycol 3350 [Miralax] 17 GM Packet) PO SCH (09:00)
[2024-01-28] MEDS ORDERED: Non-Formulary Medication 1 Each (Pantoprazole Sodium 40 MG Tablet.Dr) PO SCH (09:00)
== END 2024-01-27 14:30 | DRG 389 ==
LOC: JD.ED 07:18 → JD.MS 12:01
PROVIDERS: ADMIT Surgery; ATTEND Surgery
PROC: 0D9670Z Drainage of Stomach with Drainage Device, Via Natural or Artificial Opening (ICD-10-PCS; principal; 2024-01-26)
DX: K56.609 Unspecified intestinal obstruction, unspecified as to partial versus complete obstruction (principal); K56.51 Intestinal adhesions [bands], with partial obstruction; F03.93 Unspecified dementia, unspecified severity, with mood disturbance; H91.90 Unspecified hearing loss, unspecified ear; E66.9 Obesity, unspecified; I50.9 Heart failure, unspecified; E78.00 Pure hypercholesterolemia, unspecified; I11.0 Hypertensive heart disease with heart failure; K21.9 Gastro-esophageal reflux disease without esophagitis; M19.90 Unspecified osteoarthritis, unspecified site; Z68.39 Body mass index [BMI] 39.0-39.9, adult; J44.9 Chronic obstructive pulmonary disease, unspecified; F79 Unspecified intellectual disabilities; E66.01 Morbid (severe) obesity due to excess calories; Z88.0 Allergy status to penicillin; Z88.8 Allergy status to other drugs, medicaments and biological substances; Z88.2 Allergy status to sulfonamides; Z88.1 Allergy status to other antibiotic agents; Z79.899 Other long term (current) drug therapy; Z86.16 Personal history of COVID-19; Z68.33 Body mass index [BMI] 33.0-33.9, adult; Z98.890 Other specified postprocedural states
CPT/HCPCS: 36415; 43752; 74018; 74177; 80053; 82150; 83690; 85025; 85610; 87040; 96361; 96374; 99285; C1758; J1171; J7030; Q9967; 81001; 82947; 83735; 84100; 86140; 87086; 87088; 87186; 87641; 94761; 99222; 99232; A9270-GY; J2060; J2470; J3490; J7040; J7799